=== PATIENT | female | born 1995 | race Caucasian/White ===

== ENCOUNTER 2016-05-27 15:28 | Emergency (ER) | payer MEDICAID ==
[~2016-05-27] VITALS: Ht 152.4 cm; Wt 59.9 kg
[2016-05-27 15:36] VITALS: BP 148/68; PULSE 117; RESP 16; TEMP 98.5; O2SAT 99
--- NOTE | 2016-05-27 15:43 | NUR ---
FLOR Kohler in triage room examining patient
--- NOTE | 2016-05-27 15:43 | NUR ---
Patient to ER bed 7 to gown for evaluation. Side rails up. Report given to SUZANNE GUNN.
[2016-05-27] MEDS ORDERED: LORazepam 1 MG TABLET PO ONE (15:45)
[2016-05-27] MEDS ORDERED: LevALBUTEROL HCL 1.25 MG/0.5 ML *CONC.* VIAL.NEB (XOPENEX CONC.) INH ONE (15:45)
--- NOTE | 2016-05-27 15:50 | NUR ---
Pt brought in by grandfather in stable condition. Pt c/o feeling chest pain and back pain since this am. Pt stated that she vomited x3 today. Pt stated that she has a family hx of cardiac problems so she feels very concerned about her heart. Pt present very anxious. -sob. Placed pt on cardiac rehabilitation program director. No acute distress noted at this time, will continue to monitor
[2016-05-27] MEDS ORDERED: ONDANSETRON 4 MG ODT TAB PO ONE (16:00)
[2016-05-27] MEDS ORDERED: KETOROLAC TROMETHAMINE 30 MG VIAL IVP ONE (16:00)
[2016-05-27] MEDS ORDERED: NACL 0.9% 1,000 ML IV ONE (16:00)
[2016-05-27 16:10] LABS: BARBITURATE, URINE NEGATIVE (NEG <=200); BENZODIAZEPINE, URINE NEGATIVE (NEG <=150); CANNABINOID, URINE NEGATIVE (NEG <=50); COCAINE, URINE NEGATIVE (NEG <=150); METHAMPHETAMINES SCREEN,URINE NEGATIVE (NEG <=500); OPIATE, URINE NEGATIVE (NEG <=100); PHENCYCLIDINE SCREEN,URINE NEGATIVE (NEG <=25); UR TRICYCLIC ANTIDEPRESSANTS NEGATIVE (NEG <=300); URINE AMPHETAMINE NEGATIVE (NEG <=500); URINE METHADONE NEGATIVE (NEG <=200); URINE OXYCODONE SCREEN NEGATIVE (NEG <=100); URINE PROPOXYPHENE SCREEN NEGATIVE (NEG <=300)
--- NOTE | 2016-05-27 17:20 | NUR ---
Patient made aware not to drive or operate any heavy machinery as ativan may put her at risk for falld. Patient made aware that she may be put at risk for falls and to ask for assistance if needed when ambulating. patient made aware not to mix the medication with drugs that will make her drowsy or any other illicit drugs. pt return verbalized
--- NOTE | 2016-05-27 17:23 | NUR ---
Patient given written and verbal discharge instructions and verbalizes understanding. ER [facility] TEACHER discussed with patient the results and treatment provided. Patient in stable condition. ID arm band removed. IV catheter removed intact and dressing applied, no active bleeding. Rx of MOTRIN given. Patient educated on pain management and to follow up with PMD. Pain Scale 0/10. Opportunity for questions provided and answered.
[2016-05-27 17:30] VITALS: BP 110/50; PULSE 103; RESP 16; TEMP 98.2; O2SAT 99
== END 2016-05-27 17:23 | disposition home or self-care (01) ==
LOC: SED 15:28
DX: J06.9 Acute upper respiratory infection, unspecified (principal); R07.89 Other chest pain; R11.10 Vomiting, unspecified; J45.909 Unspecified asthma, uncomplicated; F41.9 Anxiety disorder, unspecified
CPT/HCPCS: 80307; 81025; 93005; 96361; 96374; 99285; J1885; J7030; Q0162